=== PATIENT | female | born 1990 | race Caucasian/White ===

== ENCOUNTER 2017-04-16 02:07 | Day surgery (SDC) | payer MEDICAID ==
[2017-04-16] MEDS ORDERED: NS 1,000 ML IV ONE ×2 (02:33→04:05)
[2017-04-16] MEDS ORDERED: ONDANSETRON 4 MG/2 ML VIAL IVP ONE (02:33)
[2017-04-16] MEDS ORDERED: HYDROmorphONE/DILAUDID 1 MG/ML INJ IVP ONE (02:33)
--- NOTE | 2017-04-16 02:36 | EDPHY ---
H & P Stated Complaint: rlq abd pain nausea since 2030 Time Seen by Provider: 04/16/17 02:25 HPI/ROS: HPI The patient presents with right lower quadrant abdominal pain which began at 8: 30 p.m. tonight. She had a normal dinner at 7:30 a.m. tonight and shortly thereafter she developed right lower quadrant abdominal pain which has been dull in nature. She went to bed and then awoke at 11:00 p.m. tonight with worsening pain and has been unable to go back to sleep because the pain is so severe. She has had 2 episodes of nonbloody nonbilious emesis. She is not sure when her last bowel movement was. She says the pain is not better or worse with changes in position. She has no prior history of similar pain.. REVIEW OF SYSTEMS Constitutional: No fever, no chills. Eyes: No discharge. ENT: No sore throat. Cardiovascular: No chest pain, no palpitations. Respiratory: No cough, no shortness of breath. Gastrointestinal: See HPI Genitourinary: No hematuria. Musculoskeletal: No back pain. Skin: No rashes. Neurological: No headache. PMHx: Healthy Soc Hx: Lives at home with her partner PHYSICAL General Appearance: Alert, no distress Eyes: Pupils equal and round no pallor or injection ENT, Mouth: Mucous membranes moist Respiratory: There are no retractions, lungs are clear to auscultation Cardiovascular: Regular rate and rhythm Gastrointestinal: Abdomen is soft with tenderness in the right lower greater than right upper quadrant with no guarding or rebound Neurological: A&O, moves all extremities Skin: Warm and dry, no rashes Musculoskeletal: Neck is supple non tender Extremities: symmetrical, full range of motion Psychiatric: Patient is oriented X 3, there is no agitation Source: Patient Exam Limitations: No limitations - Personal History LMP (Females 10-55): 1-7 Days Ago Current Tetanus/Diphtheria Vaccine: Yes Current Tetanus Diphtheria and Acellular Pertussis (TDAP): Yes - Medical/Surgical History Hx Asthma: No Hx Chronic Respiratory Disease: No Hx Diabetes: No Hx Cardiac Disease: No Hx Renal Disease: No Hx Cirrhosis: No Hx Alcoholism: No Hx HIV/AIDS: No Hx Splenectomy or Spleen Trauma: No Other PMH: c section. wisdom teeth - Social History Smoking Status: Never smoked Constitutional: Initial Vital Signs Temperature (C) 37.1 C 04/16/17 02:13 Heart Rate 112 H 04/16/17 02:13 Respiratory Rate 18 04/16/17 02:13 Blood Pressure 113/74 04/16/17 02:13 O2 Sat (%) 95 04/16/17 02:13 O2 Delivery Mode Room Air Allergies/Adverse Reactions: No Known Allergies Allergy (Unverified 04/16/17 02:13) Home Medications: Medication Instructions Recorded 04/16/17 Medical Decision Making - Diagnostics Imaging Results: Ultrasound right upper quadrant, right lower quadrant, pelvic is unremarkable, discussed with Dr. Dc of Radiology. CT scan abdomen pelvis with IV contrast demonstrates acute appendicitis with 10 mm dilated appendix with amparo appendiceal thickening, discussed with Dr. Dc of Radiology. Differential Diagnosis: 26-year-old female who presents with right-sided lower abdominal pain associated with nausea and vomiting for the last several hours. On exam, she is mildly tachycardic, otherwise vital signs are unremarkable, she has tenderness of her right lower quadrant as well as mild tenderness of her right upper quadrant. Differential diagnosis includes acute appendicitis, cholecystitis, cholelithiasis, ileitis, ovarian cyst with torsion. In the emergency department, patient was given 1 L of IV fluid for vomiting, Zofran and Dilaudid for pain. Labs were for performed and did reveal profound leukocytosis of 23,000. She had ultrasound performed which was unremarkable, though cannot visualize the appendix. Because of high suspicion for intra- abdominal infection, CT scan was ordered which demonstrated acute appendicitis. I have ordered antibiotics for the patient. I consulted with Dr. Sepulveda of General surgery who will admit the patient. - Data Points Laboratory Results: Laboratory Results 04/16/17 02:37 04/16/17 02:37 04/16/17 04/16/17 04/16/17 02:37 02:37 02:37 WBC 23.14 10^3/uL H 10^3/uL (3.80-9.50) RBC 4.53 10^6/uL 10^6/uL (4.18-5.33) Hgb 13.6 g/dL g/dL (12.6-16.3) Hct 39.6 % % (38.0-47.0) MCV 87.4 fL fL (81.5-99.8) MCH 30.0 pg pg (27.9-34.1) MCHC 34.3 g/dL g/dL (32.4-36.7) RDW 13.0 % % (11.5-15.2) Plt Count 257 10^3/uL 10^3/uL (150-400) MPV 9.9 fL fL (8.7-11.7) Neut % (Auto) 91.0 % H % (39.3-74.2) Lymph % (Auto) 4.8 % L % (15.0-45.0) [place]acier % (Auto) 3.1 % L % (4.5-13.0) Eos % (Auto) 0.2 % L % (0.6-7.6) Baso % (Auto) 0.3 % % (0.3-1.7) Nucleat RBC Rel Count 0.0 % % (0.0-0.2) Absolute Neuts (auto) 21.06 10^3/uL H 10^3/uL (1.70-6.50) Absolute Lymphs (auto) 1.12 10^3/uL 10^3/uL (1.00-3.00) Absolute Monos (auto) 0.72 10^3/uL 10^3/uL (0.30-0.80) Absolute Eos (auto) 0.04 10^3/uL 10^3/uL (0.03-0.40) Absolute Basos (auto) 0.06 10^3/uL 10^3/uL (0.02-0.10) Absolute Nucleated RBC 0.00 10^3/uL 10^3/uL (0-0.01) Immature Gran % 0.6 % % (0.0-1.1) Immature Gran # 0.14 10^3/uL H 10^3/uL (0.00-0.10) Sodium 144 mEq/L mEq/L (134-144) Potassium 3.7 mEq/L mEq/L (3.5-5.2) Chloride 106 mEq/L mEq/L (97-110) Carbon Dioxide 23 mEq/l mEq/l (22-31) Anion Gap 15 mEq/L mEq/L (8-16) BUN 14 mg/dL mg/dL (7-23) Creatinine 0.6 mg/dL mg/dL (0.6-1.0) Estimated GFR > 60 Glucose 110 mg/dL H mg/dL (70-100) Calcium 9.5 mg/dL mg/dL (8.5-10.4) Total Bilirubin 0.3 mg/dL mg/dL (0.1-1.4) Conjugated Bilirubin 0.1 mg/dL mg/dL (0.0-0.5) Unconjugated Bilirubin 0.2 mg/dL mg/dL (0.0-1.1) AST 16 IU/L IU/L (14-46) ALT 30 IU/L IU/L (9-52) Alkaline Phosphatase 61 IU/L IU/L (38-126) Total Protein 7.1 g/dL g/dL (6.3-8.2) Albumin 4.3 g/dL g/dL (3.5-5.0) Beta HCG, Qual NEGATIVE Urine Color Urine Appearance Urine pH Ur Specific Archbold Urine Protein Urine Ketones Urine Blood Urine Nitrate Urine Bilirubin Urine Urobilinogen Ur Leukocyte Esterase Urine Glucose 04/16/17 02:00 WBC RBC Hgb Hct MCV MCH MCHC RDW Plt Count MPV Neut % (Auto) Lymph % (Auto) [place] % (Auto) Eos % (Auto) Baso % (Auto) Nucleat RBC Rel Count Absolute Neuts (auto) Absolute Lymphs (auto) Absolute Monos (auto) Absolute Eos (auto) Absolute Basos (auto) Absolute Nucleated RBC Immature Gran % Immature Gran # Sodium Potassium Chloride Carbon Dioxide Anion Gap BUN Creatinine Estimated GFR Glucose Calcium Total Bilirubin Conjugated Bilirubin Unconjugated Bilirubin AST ALT Alkaline Phosphatase Total Protein Albumin Beta HCG, Qual Urine Color YELLOW Urine Appearance MODERATELY TURBID Urine pH 6.0 (5.0-7.5) Ur Specific Archbold 1.017 (1.002-1.030) Urine Protein NEGATIVE (NEGATIVE) Urine Ketones NEGATIVE (NEGATIVE) Urine Blood NEGATIVE (NEGATIVE) Urine Nitrate NEGATIVE (NEGATIVE) Urine Bilirubin NEGATIVE (NEGATIVE) Urine Urobilinogen 2.0 EU H EU (0.2-1.0) Ur Leukocyte Esterase NEGATIVE (NEGATIVE) Urine Glucose NEGATIVE (NEGATIVE) Medications Given: Discontinued Medications Hydromorphone HCl (Dilaudid) 0.5 mg IVP EDNOW ONE Stop: 04/16/17 02:34 Last Admin: 04/16/17 02:42 Dose: 0.5 mg Sodium Chloride (Ns) 1,000 mls @ 0 mls/hr IV EDNOW ONE; Wide Open PRN Reason: Protocol Stop: 04/16/17 02:34 Last Admin: 04/16/17 02:40 Dose: 1,000 mls Ondansetron HCl (Zofran) 4 mg IVP EDNOW ONE Stop: 04/16/17 02:34 Last Admin: 04/16/17 02:41 Dose: 4 mg Departure - Departure Disposition: [facility] Inpatient Acute Clinical Impression: Acute appendicitis Qualifiers: Acute appendicitis type: unspecified acute appendicitis type Qualified Code(s) : K35.80 - Unspecified acute appendicitis Condition: Fair Referrals: NONE *PRIMARY CARE P,. [Primary Care Provider] - As per Instructions
[2017-04-16 02:47] LABS: % IMMATURE GRANULYOCYTES 0.6 % (0.0-1.1); ABSOLUTE IMMATURE GRANULOCYTES 0.14 10^3/uL (0.00-0.10); ADD DIFF? NO; ADD MORPH? NO; ADD SCAN? NO; ATYPICAL LYMPHOCYTE FLAG 0 (0-99); FRAGMENT RBC FLAG 0 (0-99); HEMATOCRIT 39.6 % (38.0-47.0); HEMOGLOBIN 13.6 g/dL (12.6-16.3); LEFT SHIFT FLG 0 (0-99); LIPEMIA HEMOLYSIS FLAG 90 (0-99); MEAN CELL HEMOGLOBIN CONCENTR. 34.3 g/dL (32.4-36.7); MEAN CELL VOLUME 87.4 fL (81.5-99.8); MEAN PLATELET VOLUME 9.9 fL (8.7-11.7); PLATELET CLUMPS FLAG 0 (0-99); PLATELET COUNT 257 10^3/uL (150-400); RED BLOOD CELL COUNT 4.53 10^6/uL (4.18-5.33)
[2017-04-16 02:55] LABS: COLOR YELLOW; LEUKOCYTE ESTERASE,URINE NEGATIVE (NEGATIVE); NITRITE,URINE NEGATIVE (NEGATIVE)
[2017-04-16 03:02] LABS: ALANINE AMINOTRANSFERASE 30 IU/L (9-52); ALBUMIN 4.3 g/dL (3.5-5.0); ALKALINE PHOSPHATASE 61 IU/L (38-126); ANION GAP 15 mEq/L (8-16); ASPARTATE AMINOTRANSFERASE 16 IU/L (14-46); BILIRUBIN,TOTAL 0.3 mg/dL (0.1-1.4); BILIRUBIN-CONJUGATED 0.1 mg/dL (0.0-0.5); BILIRUBIN-UNCONJUGATED 0.2 mg/dL (0.0-1.1); CALCIUM 9.5 mg/dL (8.5-10.4); CARBON DIOXIDE 23 mEq/l (22-31); CHLORIDE 106 mEq/L (97-110); CREATININE 0.6 mg/dL (0.6-1.0); GLOMERULAR FILTRATION RATE > 60; GLUCOSE 110 mg/dL (70-100); POTASSIUM 3.7 mEq/L (3.5-5.2); SODIUM 144 mEq/L (134-144); TOTAL PROTEIN 7.1 g/dL (6.3-8.2)
[2017-04-16] MEDS ORDERED: IOPAMIDOL (ISOVUE-300) 100 ML BTL ONE (03:29)
[2017-04-16] MEDS ORDERED: AMPICILLIN/SULBACTAM 3 GM in NS 100 ML IV ONE (04:02)
--- NOTE | 2017-04-16 05:15 | PDANEPAE ---
ANE History of Present Illness laparoscopic appendectomy ANE Past Medical History - Cardiovascular History Hx Hypertension: No Hx Arrhythmias: No Hx Chest Pain: No Hx Coronary Artery / Peripheral Vascular Disease: No Hx CHF / Valvular Disease: No Hx Palpitations: No - Pulmonary History Hx COPD: No Hx Asthma/Reactive Airway Disease: No Hx Recent Upper Respiratory Infection: Yes Hx Oxygen in Use at Home: No Hx Sleep Apnea: No - Endocrine History Hx Diabetes: No Hypothyroid: No Obesity: no - Renal History Hx Renal Disorders: No - Liver History Hx Hepatic Disorders: No - Neurological & Psychiatric Hx Hx Neurological and Psychiatric Disorders: No - Cancer History Hx Cancer: No - GI History GERD: no Hx Gastrointestinal Disorders: No - Chronic Pain History Chronic Pain: No ANE Review of Systems Review of Systems: - Exercise capacity METS (RN): 4 METS ANE Patient History - Allergies Allergies/Adverse Reactions: No Known Allergies Allergy (Unverified 04/16/17 02:13) - Home Medications Home Medications: 04/16/17 [Last Taken Unknown] - NPO status NPO Since - Liquids (Date): 04/16/17 NPO Since - Liquids (Time): 01:30 NPO Since - Solids (Date): 04/15/17 NPO Since - Solids (Time): 19:30 - Anes Hx Anes Hx: no prior problems - Smoking Hx Smoking Status: Never smoked Marijuana use: No - Alcohol Use Alcohol Use: Occasionally - Family Anes Hx Family Anes Hx: none ANE Labs/Vital Signs - Labs Result Diagrams: 04/16/17 02:37 04/16/17 02:37 - Vital Signs Blood Pressure: 107/57 Heart Rate: 75 Respiratory Rate: 18 O2 Sat (%): 95 Height: 170.18 cm Weight: 71.668 kg ANE Physical Exam - Airway Neck exam: FROM Mallampati Score: Class 1 Mouth exam: normal dental/mouth exam - Pulmonary Pulmonary: clear to auscultation - Cardiovascular Cardiovascular: regular rate and rhythym - ASA Status ASA Status: II, E ANE Anesthesia Plan Anesthesia Plan: general endotracheal anesthesia
[2017-04-16] MEDS ORDERED: ROCURONIUM 50 MG/5 ML VIAL ONE (05:19)
[2017-04-16] MEDS ORDERED: RANITIDINE 50 MG/2 ML VIAL ONE (05:19)
[2017-04-16] MEDS ORDERED: fentaNYL 250 MCG/5 ML INJ ONE (05:19)
[2017-04-16] MEDS ORDERED: PROPOFOL 200 MG/20 ML VIAL ONE (05:19)
[2017-04-16] MEDS ORDERED: DEXAMETHASONE 4 MG/ML VIAL ONE (05:19)
[2017-04-16] MEDS ORDERED: METOCLOPRAMIDE 10 MG/2 ML VIAL ONE (05:20)
[2017-04-16] MEDS ORDERED: MIDAZOLAM 2 MG/2 ML VIAL ONE (05:21)
[2017-04-16] MEDS ORDERED: PHENYLEPHRINE HCL 100 MCG/ML SYR ONE (05:43)
[2017-04-16] MEDS ORDERED: ONDANSETRON 4 MG/2 ML VIAL ONE (05:55)
[2017-04-16] MEDS ORDERED: NEOSTIGMINE METHYLSULFATE 3 MG/3 ML SYR ONE ×2 (06:02)
[2017-04-16] MEDS ORDERED: GLYCOPYRROLATE 0.2 MG/1 ML VIAL ONE ×2 (06:02→06:03)
--- NOTE | 2017-04-16 06:25 | POSTOPPROG ---
Post Op Note Date of Operation: 04/16/17 Surgeon: Mikie Sepulveda Pre-op Diagnosis: acute appendicitiws Post-op Diagnosis: same Indication: appendicitis Procedure: lap appy Inf/Abcess present in the surg proc area at time of surgery?: No EBL: Minimal
[2017-04-16] MEDS ORDERED: HYDROCODONE/APAP 5/325 TAB PO PRN (06:30)
[2017-04-16] MEDS ORDERED: OXYCODONE/APAP 5/325 TAB PO PRN (06:30)
[2017-04-16] MEDS ORDERED: NALOXONE HCL 0.4 MG/ML INJ IVP PRN (06:30)
--- NOTE | 2017-04-16 06:38 | POSTANESTH ---
Post Anesthetic Evaluation Cardiovascular Status: Normal, Stable Respiratory Status: Similar to Pre-op Cond. Level of Consciousness/Mental Status: Can Participate in Eval Pain Control: Adequate, Prn Tx Ordered Nausea/Vomiting Control: Adequate, Prn Tx Ordered Complications Possibly Related to Anesthesia: None Noted
[2017-04-16] MEDS ORDERED: BUPIVACAINE 0.5% 30 ML SDV ONE (06:40)
[2017-04-16] MEDS ORDERED: fentaNYL 100 MCG/2 ML INJ ONE (06:52)
[2017-04-16] MEDS: fentaNYL 100 MCG/2 ML INJ IVP PRN ×2 (06:52→07:09)
--- NOTE | 2017-04-16 07:18 | GOP ---
[f rep st] OPERATIVE REPORT DATE OF OPERATION: SURGEON: Mikie Sepulveda MD PREOPERATIVE DIAGNOSIS: Acute appendicitis. POSTOPERATIVE DIAGNOSIS: Acute appendicitis. PROCEDURE PERFORMED: Laparoscopic appendectomy. FINDINGS: INDICATIONS: A 26-year-old female with right lower quadrant pain, leukocytosis , CT scan showing an enlarged appendix. DESCRIPTION OF PROCEDURE: Under general anesthetic, the abdomen was prepped with ChloraPrep, draped in the usual sterile fashion. Infraumbilical incision made. A Veress needle used to achieve a pneumoperitoneum. A 12 mm trocar was placed. Two 5 mm trocars were placed and the viscera examined. There was a modest amount of free fluid in the pelvis. Both ovaries were identified, the left 1 had a small cyst. The appendix seemed edematous, but not the 10 mm appendix that was suspected by CT scan. The mesoappendix was harvested with a Harmonic Scalpel. The base of the appendix was amputated flush on the cecum with an Endo-AICHA stapler. It was placed in a pouch and extracted. Examination of the remainder of the viscera showed no other inflamed sites. Fluid was aspirated from the pelvis. Fascial defect at the umbilicus closed with 0 Vicryl , skin with 4-0 Monocryl and Dermabond. The patient tolerated the procedure well. /[id number]/MODL MTDD
[2017-04-16 09:11] VITALS: BP 103/67; O2SAT 96
[2017-04-16 09:13] VITALS: PULSE 68; RESP 16; TEMP 98.6
== END 2017-04-16 09:15 | disposition home or self-care (01) ==
LOC: UNDOADMOB 04:08 → FSGY 04:15
PROVIDERS: ATTEND Surgery
PROC: 0DTJ4ZZ Resection of Appendix, Percutaneous Endoscopic Approach (ICD-10-PCS; principal; 2017-04-16 05:15)
DX: K35.80 Unspecified acute appendicitis (principal)
CPT/HCPCS: J0171; J0295; J1100; J1170; J2250; J2370; J2405; J2704; J2710; J2765; J2780; J3010; Q9967

== ENCOUNTER → 2017-05-29 | Outpatient (CLI) | payer MEDICAID | LOC: FIMAGING 12:03 | PROVIDERS: ATTEND Family Medicine | DX: O20.8 Other hemorrhage in early pregnancy (principal); Z3A.01 Less than 8 weeks gestation of pregnancy ==

== ENCOUNTER → 2017-08-13 | Outpatient (CLI) | payer MEDICAID | LOC: FIMAGING 09:47 | PROVIDERS: ATTEND Family Medicine | DX: Z34.92 Encounter for supervision of normal pregnancy, unspecified, second trimester (principal); Z3A.17 17 weeks gestation of pregnancy ==

== ENCOUNTER → 2017-11-13 | Outpatient (CLI) | payer MEDICAID | LOC: FIMAGING 14:30 | PROVIDERS: ATTEND Family Medicine | DX: Z34.93 Encounter for supervision of normal pregnancy, unspecified, third trimester (principal); Z3A.31 31 weeks gestation of pregnancy ==

== ENCOUNTER 2017-11-25 06:04 | Emergency (ER) | payer MEDICAID ==
[2017-11-25 06:09] VITALS: BP 126/72
[2017-11-25] MEDS ORDERED: MAGNESIUM CITRATE 300 ML BOTTLE ONE (06:33)
[2017-11-25] MEDS ORDERED: MAGNESIUM CITRATE 300 ML BOTTLE PO ONE (06:34)
--- NOTE | 2017-11-25 06:57 | EDPHY ---
H & P Stated Complaint: 33WEEK PREG, CONSTIPATED Time Seen by Provider: 11/25/17 06:18 HPI/ROS: Chief Complaint: Constipation HPI: 27-year-old G2, P1 woman who is currently 33 weeks . Patient states she has been constipated in increasingly uncomfortable overnight to the point that she has been unable to sleep. She did take a colace suppository without any relief. Last bowel movement was 2 days ago. No uterine cramping. She is feeling the baby move. Does not feel there is any complications with . No nausea or vomiting. ROS: 10 point Review of Systems is negative except as noted in the HPI. PMH: Denies Social History: No smoking, no alcohol, no recreational drug use Family History: non-contributory Physical Exam: Gen: Awake, Alert, No Distress HEENT: Nose: no rhinorrhea Eyes: PERRLA, EOMI Mouth: Moist mucosa Neck: Supple, no JVD Chest: nontender, lungs clear to auscultation Heart: S1, S2 normal, no murmur Abd: Soft, gravid uterus consistent with dates, no guarding Back: no CVA tenderness, no midline tenderness Ext: no edema, non-tender Skin: no rash Neuro: CN II-XII intact, Sensation grossly intact, Strength 5/5 in bilateral upper and lower extremities - Personal History LMP (Females 10-55): Current Tetanus Diphtheria and Acellular Pertussis (TDAP): Yes - Medical/Surgical History Hx Asthma: No Hx Chronic Respiratory Disease: No Hx Diabetes: No Hx Cardiac Disease: No Hx Renal Disease: No Hx Cirrhosis: No Hx Alcoholism: No Hx HIV/AIDS: No Hx Splenectomy or Spleen Trauma: No Other PMH: c section. wisdom teeth - Social History Smoking Status: Never smoked Constitutional: Initial Vital Signs Temperature (C) 36.5 C 11/25/17 06:07 Heart Rate 98 11/25/17 06:07 Respiratory Rate 20 11/25/17 06:07 Blood Pressure 126/72 H 11/25/17 06:07 O2 Sat (%) 98 11/25/17 06:07 O2 Delivery Mode Room Air Allergies/Adverse Reactions: No Known Allergies Allergy (Unverified 04/16/17 02:13) Home Medications: Medication Instructions Recorded 04/16/17 Medical Decision Making ED Course/Re-evaluation: Thirty-three week woman with constipation. Will treat her with Mag citrate and Fleet enema. Will discharge her home with a regimen for her bowels. Follow up with her OBGYN in 2-3 days for further evaluation. Departure - Departure Disposition: Home, Routine, Self-Care Clinical Impression: Constipation Condition: Good Instructions: Constipation (ED) Additional Instructions: Make sure to drink at least eight 8 oz glasses of water a day. You may take MiraLax daily according to package instructions. If you feel constipated drink 1/2 bottle of magnesium citrate. Wait 1-2 hours. If you do not have a bowel movement after that time drink the 2nd half of the bottle. If you continues to be constipated you may use a Fleet's enema, available over- the-counter. Follow up with her OBGYN in 1-2 days. Return to the emergency department for increasing abdominal pain, pelvic cramping, nausea, vomiting, or any other concerns. Referrals: Sarah Suarez MD [Primary Care Provider] - As per Instructions
== END 2017-11-25 07:50 | disposition home or self-care (01) ==
DX: O99.613 Diseases of the digestive system complicating pregnancy, third trimester (principal); K59.00 Constipation, unspecified; Z3A.33 33 weeks gestation of pregnancy